=== PATIENT | female | born 1970 | race Caucasian/White ===

== ENCOUNTER → 2018-10-02 | Day surgery (SDC) | payer OTHER ==
[~2018-10-02] VITALS: Ht 152.4 cm; Wt 65.8 kg
[2018-10-02 08:02] VITALS: BP 122/89
[2018-10-02 11:15] VITALS: BP 108/75
== END | disposition home or self-care (01) ==
LOC: DS 07:39 → OR 09:30 → DS 09:30
PROVIDERS: Obstetrics & Gynecology
PROC: 0UJD8ZZ Inspection of Uterus and Cervix, Via Natural or Artificial Opening Endoscopic (ICD-10-PCS; 2018-10-02)
PROC: 0UDB7ZZ Extraction of Endometrium, Via Natural or Artificial Opening (ICD-10-PCS; principal; 2018-10-02 09:30)
DX: D25.9 Leiomyoma of uterus, unspecified (principal); N92.1 Excessive and frequent menstruation with irregular cycle
CPT/HCPCS: J0690; J2405; J2704; J3010; J7030; J7120